=== PATIENT | male | born 1975 | race American Indian/Alaskan Native ===

== ENCOUNTER 2019-09-24 08:31 | Emergency (ER) | payer BC ==
[2019-09-24 08:38] VITALS: BP 180/102
--- NOTE | 2019-09-24 09:31 | Emergency Department Report ---
ED General Adult HPI - General Chief complaint: Allergic Reaction Stated complaint: ALLERGIC REACTION Time Seen by Provider: 09/24/19 09:24 Source: patient Mode of arrival: Ambulatory Limitations: No Limitations - History of Present Illness Initial comments: 44-year-old -[place] male presents to emergency department complaining of a 1 to a 1-1/2 day history and had a history worsening swelling to his eyes started with a red nita in the middle of his forehead which has progressively become more swollen and tender since the onset. He is unsure of the origin of the area of concern. Reports no pruritus. Reports no fever, chills, sweats, palpitations, no nausea or vomiting. Consistency: constant Improves with: none Worsens with: none Associated Symptoms: denies: chest pain, headaches, loss of appetite, malaise, nausea/vomiting, syncope, weakness - Related Data Previous Rx's Medication Instructions Recorded Last Taken Type Sulfamethoxazole/Trimethoprim 1 each PO BID #20 tablet 09/24/19 Unknown Rx [Bactrim Ds] cephALEXin [Keflex] 500 mg PO Q6HR #40 capsule 09/24/19 Unknown Rx predniSONE [Deltasone] 50 mg PO QDAY #5 tab 09/24/19 Unknown Rx Allergies Allergy/AdvReac Type Severity Reaction Status Date / Time MEL Inhibitors Allergy Angioedema Verified 09/24/19 08:36 ED Review of Systems ROS: Stated complaint: ALLERGIC REACTION Other details as noted in HPI Comment: All other systems reviewed and negative ED Past Medical Hx - Past Medical History Hx Hypertension: Yes - Surgical History Past Surgical History?: No - Social History Smoking Status: Never Smoker Substance Use Type: None - Medications Home Medications: Home Medications Medication Instructions Recorded Confirmed Last Taken Type Sulfamethoxazole/Trimethoprim 1 each PO BID #20 tablet 09/24/19 Unknown Rx [Bactrim Ds] cephALEXin [Keflex] 500 mg PO Q6HR #40 capsule 09/24/19 Unknown Rx predniSONE [Deltasone] 50 mg PO QDAY #5 tab 09/24/19 Unknown Rx ED Physical Exam - General Limitations: No Limitations General appearance: alert, in no apparent distress - Head Head exam: Present: normocephalic, other - Expanded Head Exam Expanded Head exam: Present: general tenderness 1 - Swelling mild induration and cellulitis noted with wound suspicious of a puncture type bite no discharge 2 - Diffuse pain was periorbital swelling with no invasion of the conjunctiva or sclera no discoloration to the conjunctiva or sclera - Eye Eye exam: Present: normal appearance, PERRL, EOMI - ENT ENT exam: Present: normal exam, normal orophraynx, mucous membranes moist - Neck Neck exam: Present: normal inspection, full ROM. Absent: tenderness, meningismus, lymphadenopathy, thyromegaly - Respiratory Respiratory exam: Present: normal lung sounds bilaterally. Absent: respiratory distress, wheezes, rales, rhonchi - Cardiovascular Cardiovascular Exam: Present: regular rate, normal rhythm. Absent: systolic murmur, diastolic murmur, rubs, gallop - GI/Abdominal GI/Abdominal exam: Present: soft, normal bowel sounds - Rectal Rectal exam: Present: deferred - Extremities Exam Extremities exam: Present: normal inspection - Back Exam Back exam: Present: normal inspection - Neurological Exam Neurological exam: Present: alert, oriented X3 - Psychiatric Psychiatric exam: Present: normal affect, normal mood - Skin Skin exam: Present: warm, dry, intact, normal color. Absent: rash ED Course Vital Signs 09/24/19 08:36 Temperature 98.1 F Pulse Rate 73 Respiratory 20 Rate Blood Pressure 180/102 O2 Sat by Pulse 96 Oximetry ED Medical Decision Making - Medical Decision Making Presentation most consistent with simple cellulitis with residual periorbital swelling however no periorbital cellulitis present. Given History, Exam, and Workup I have low suspicion for Necrotizing Fasciitis, Abscess, Osteomyelitis, DVT or other emergent problem as a cause for this presentation. Rx: Cephalexin 500mg PO q6hrs in conjunction with Bactrim DS Disposition: Discharge. No evidence of serious bacterial illness. Nontoxic appearing, VSS. Low risk for treatment failure based on history. Strict return precautions discussed with patient with full understanding. Advised patient to follow up promptly with primary care provider within next 24 -48 hours. Critical care attestation.: If time is entered above; I have spent that time in minutes in the direct care of this critically ill patient, excluding procedure time. ED Disposition Clinical Impression: Cellulitis Disposition: DC-01 TO HOME OR SELFCARE Is pt being admited?: No Does the pt Need Aspirin: No Condition: Stable Instructions: Cellulitis (ED) Prescriptions: Sulfamethoxazole/Trimethoprim [Bactrim Ds] 1 each PO BID #20 tablet predniSONE [Deltasone] 50 mg PO QDAY #5 tab cephALEXin [Keflex] 500 mg PO Q6HR #40 capsule Referrals: [facility] [Provider Group] - 24 Hours
== END 2019-09-24 11:10 | disposition home or self-care (01) ==
LOC: ED 08:31
DX: H00.036 Abscess of eyelid left eye, unspecified eyelid (principal); H00.033 Abscess of eyelid right eye, unspecified eyelid; I10 Essential (primary) hypertension; Z88.8 Allergy status to other drugs, medicaments and biological substances; Z79.899 Other long term (current) drug therapy
CPT/HCPCS: 99281